=== PATIENT | female | born 1975 | race Caucasian/White ===

== ENCOUNTER 2022-03-28 07:57 | Emergency (ER) | payer OTHER, SELFPAY ==
[2022-03-28 08:30] VITALS: BP 126/54; PULSE 73; RESP 20; TEMP 36.2; O2SAT 100
--- NOTE | 2022-03-28 08:57 | ED.ANIMALBIT ---
HPI - Animal Bite General Chief Complaint: Skin/Abscess/Foreign Body Stated Complaint: TICK BITE Time Seen by Provider: 03/28/22 07:59 Source: patient and RN notes reviewed Mode of arrival: ambulatory Limitations: no limitations History of Present Illness MD complaint: other (tick bite to left abdominal wall) Onset (ago): day(s) (2) Animal: other (tick) Mechanism: bite Location: abdomen Severity scale (1-10): 1 Associated symptoms: none Treatments prior to arrival: other (tick was removed at home.) Related Data Allergies Allergy/AdvReac Type Severity Reaction Status Date / Time No Known Allergies Allergy Verified 03/28/22 09:06 Review of Systems Review of Systems: All systems reviewed & are unremarkable except as noted in HPI and below [facility] Past Medical History Medical History (Updated 03/31/22 @ 05:10 by Ruel Cervantes MD) Tick bite of abdominal wall Exam Const: General: no acute distress and alert Nutritional Appearance: thin Orientation/consciousness: patient oriented x3 Limitations: no limitations HENMT: Head: normal to inspection Ears: external ears normal, TM's normal bilaterally and EAC's normal General nose exam: Normal external nose present and Normal nares present Face and sinus: normal facial exam and sinuses nontender Mouth: Yes lip normal and Yes moist mucous membranes Throat: posterior oropharynx normal Eyes: Conjunctivae: conjunctivae normal Pupils: Equal, round and reactive pupils present EOM: EOMs intact bilaterally Neck: Neck: normal visual inspection and no lymphadenopathy Chest: Chest palpation & inspection: normal inspection of the chest Resp: Effort & Inspection: normal respiratory effort Auscultation: clear to auscultation bilaterally Cardio: Rate: regular rate Rhythm: regular rhythm GI: GI Palp: Yes Soft to palpation and No Tenderness to palpation present (GI) Other: minimal dark spot of the lower left lateral abdominal wall with no acute redness, swelling or drainage. : General: Yes bladder normal to palpation and Yes no CVA tenderness Back/Spine/Pelvis: Back: no CVA tenderness Skin: General skin exam: normal color Other: tick bite of left abdominal wall Neuro: General: patient oriented x3, moves all extremities, no meningeal signs, no focal motor deficits and CN's II-XI intact bilaterally Extrem: General: normal to inspection and no pedal edema Psych: Appearance: grossly normal and well kempt Mental Status: mental status grossly normal Affect: normal affect Thought content: Yes Normal thought content present Course Course Emergency Course: Pt was stable in the ED. Reevaluation(s) Date: 03/28/22 Time: 08:31 Vital Signs Vital signs: Vital Signs Temperature 36.2 C L 03/28/22 08:30 Pulse Rate 73 03/28/22 08:30 Respiratory Rate 20 03/28/22 08:30 Blood Pressure 126/54 L 03/28/22 08:30 Pulse Oximetry 100 03/28/22 08:30 Temperature 36.2 C L 03/28/22 09:10 Pulse Rate 73 03/28/22 09:10 Respiratory Rate 20 03/28/22 09:10 Blood Pressure 126/54 L 03/28/22 09:10 Pulse Oximetry 100 03/28/22 09:10 Procedures Other Procedure Procedure 1: Other Procedure: Tick removal: the left abdominal wall tick head was removed via a sharp pointed forceps. there was no acute bleeding. site was cleaned and dressed. Well tolerated. MDM - Animal Bite Differential Diagnosis Differential diagnosis: Likely other (tick bite) Medical Records Attestation: I reviewed the patient's medical records. Lab Data Attestation: I reviewed the patient's lab results. Critical Care Time Critical Care Time Critical Care Time: No Total Critical Care Time: 0 Discharge Plan Discharge Clinical Impression: Tick bite of abdominal wall Qualifiers: Encounter type: initial encounter Qualified Code(s): S30.861A - Insect bite (nonvenomous) of abdominal wall, initial encounter Patient Disposition: Home, Self-Care Condition: Stable Instruction
[2022-03-28 09:10] VITALS: BP 126/54; PULSE 73; RESP 20; TEMP 36.2; O2SAT 100
== END 2022-03-28 09:15 | disposition home or self-care (01) ==
PROVIDERS: Emergency Provider Emergency Medicine
DX: S30.861A Insect bite (nonvenomous) of abdominal wall, initial encounter (principal); W57.XXXA Bitten or stung by nonvenomous insect and other nonvenomous arthropods, initial encounter
CPT/HCPCS: 99283

== ENCOUNTER 2023-04-02 19:55 | Emergency (ER) | payer OTHER, SELFPAY ==
[2023-04-02 20:06] VITALS: BP 112/80; PULSE 103; RESP 16; TEMP 36.7; O2SAT 96
--- NOTE | 2023-04-02 20:45 | ED.GENADULT ---
HPI - General Adult General Chief complaint: Unspecified Stated complaint: Environmental Exposure Time Seen by Provider: 04/02/23 20:07 History of Present Illness HPI narrative: 50-year-old female reports for evaluation for needle stick source labs. Pt is a IV drug user, overdosed earlier today at a hotel and EMS was called. Police officers arrived at the scene after the patient received narcan and she was then alert and oriented. A police lieutenant patrol went to search the patient's room and was stuck in the hand by a needle used by the patient. The police lieutenant patrol is present in the ED and being evaluated for needle stick exposure. She reports there were a total of 3 drug users in the room, states they all used their own needles and her needle was clean out of the bag. Pt reports a history of Hep C in 2004 and was treated for 8-9 months with interferon, pill and shots. States after treatment she tested negative for Hep C. She has not had any hepatitis or HIV testing since. Denies history of known HIV or hep B. She is unsure is she is fully vaccinated for hepatitis B testing. Related Data Allergies Allergy/AdvReac Type Severity Reaction Status Date / Time No Known Allergies Allergy Verified 03/28/22 09:06 Review of Systems Review of Systems: CONSTITUTIONAL: Denies fever, chills EYES: Denies visual changes, redness, or discharge. ENT: Denies rhinorrhea, congestion, sore throat, or otalgia. CARDIOVASCULAR: Denies chest pain, palpitations, or edema. RESPIRATORY: Denies cough or dyspnea. GASTROINTESTINAL: Denies abdominal pain, nausea, vomiting, or diarrhea. GENITOURINARY: Denies dysuria or hematuria. SKIN: Denies rash or itching. MUSCULOSKELETAL: Denies back pain, joint pain, or myalgia. NEUROLOGIC: Denies headache, numbness, dizziness, or weakness. PSYCHIATRIC: Denies anxiety or depression. [facility] Past Medical History Medical History Tick bite of abdominal wall Exam Narrative: GENERAL: Well-appearing, in no acute distress. HEAD: Normocephalic CHEST: No respiratory distress. Clear to auscultation, no adventitious breath sounds. HEART: Regular rate and rhythm. No murmur heard. Normal peripheral pulses. EXTREMITIES: Normal range of motion. No edema. SKIN: Warm, dry, no rash. NEURO: No focal deficits. Alert and oriented x3. PSYCH: Normal mood and affect. Course Vital Signs Vital signs: Vital Signs Temperature 98.0 F 04/02/23 20:06 Pulse Rate 103 H 04/02/23 20:06 Respiratory Rate 16 04/02/23 20:06 Blood Pressure 112/80 04/02/23 20:06 Pulse Oximetry 96 04/02/23 20:06 Oxygen Delivery Room Air 04/02/23 20:06 Temperature 98.0 F 04/02/23 20:06 Pulse Rate 69 04/02/23 23:44 Respiratory Rate 14 04/02/23 23:44 Blood Pressure 92/59 L 04/02/23 23:44 Pulse Oximetry 98 04/02/23 23:44 Oxygen Delivery Room Air 04/02/23 20:06 Medical Decision Making MDM Narrative Medical decision making narrative: 47-year-old female reports for needlestick source labs. Patient is an IV drug user, overdosed earlier today and her used needle stuck a police lieutenant patrol that arrived on scene and was searching the hotel room the patient was then. She endorses a history of hepatitis C in 2004 with treatment and resolution. Vital stable. Needlestick labs obtained. HIV test is negative. Pending hepatitis labs. Discussed lab findings with patient and encouraged her to follow-up for lab results with her online portal. Encouraged follow up with PCP. Referral provided. Advised pt to stop using drugs. ED return precautions discussed. Patient agrees with the plan and verbalizes understanding. Discharged in stable condition. Medical Records Medical records reviewed: Yes I reviewed the external patient's medical records. Vital Signs Vital Signs: Vital Signs Temperature 98.0 F 04/02/23 20:06 Pulse Rate 103 H 04/02/23 20:06 Respiratory Rate 16 04/02
[2023-04-02 22:18] LABS: HIV 1/2 Ab P24 Ag Result Negative (Negative)
[2023-04-02 23:32] LABS: Hepatitis B Surface Antigen Negative (Negative)
[2023-04-02 23:44] VITALS: BP 92/59; PULSE 69; RESP 14; O2SAT 98
[2023-04-02 23:50] LABS: Hepatitis C Virus Antibody Reactive (Negative)
== END 2023-04-02 23:51 ==
PROVIDERS: Emergency Provider Physician Assistant
DX: Z04.3 Encounter for examination and observation following other accident (principal); F19.90 Other psychoactive substance use, unspecified, uncomplicated
CPT/HCPCS: 36415; 86703; 86803; 87340; 87522; 99283; G0432